=== PATIENT | male | born 1970 | race African-American/Black ===

== ENCOUNTER 2021-06-27 13:07 | Emergency (ER) | payer BC, OTHER ==
[~2021-06-27] VITALS: Ht 188 cm; Wt 109.0 kg
[2021-06-27] MEDS ORDERED: MORPHINE SULFATE 10 MG/ML CPJ IV ONE (14:30)
[2021-06-27] MEDS ORDERED: ONDANSETRON 4MG ODT PO ONE (14:30)
[2021-06-27] MEDS ORDERED: HYDR-4001 MT (15:52)
[2021-06-27] MEDS ORDERED: MORPHINE SULFATE 10 MG/ML CPJ IM ONE (16:00)
[2021-06-27 16:46] VITALS: BP 163/87
== END 2021-06-27 16:50 | disposition home or self-care (01) ==
LOC: ER 13:07
DX: M54.5 Low back pain (principal); Z98.890 Other specified postprocedural states
CPT/HCPCS: 96372; 96374; 99284; J2270; Q0162; 99283